=== PATIENT | male | born 1965 | race Caucasian/White ===

== ENCOUNTER → 2017-04-05 | Outpatient (CLI) | payer BC | END | disposition home or self-care (01) | LOC: RADMRIMAIN 06:18 | PROVIDERS: ATTEND Internal Medicine | DX: Z53.9 Procedure and treatment not carried out, unspecified reason (principal) ==

== ENCOUNTER → 2022-10-17 | Outpatient (CLI) | payer BC ==
--- NOTE | 2022-10-17 08:27 | US ---
EXAMINATION TYPE: US liver DATE OF EXAM: 10/17/2022 COMPARISON: NONE CLINICAL INDICATION: Male, 57 years old with history of R74.01; R00.1; Elevated liver enzymes TECHNIQUE: Multiple sonographic images of the right upper quadrant are obtained. FINDINGS: EXAM MEASUREMENTS: Liver Length: 16.1 cm Gallbladder Wall: 0.3 cm CBD: 0.5 cm Right Kidney: 11.4 x 6.2 x 4.7 cm Pancreas: Obscured by bowel gas Liver: attenuating, heterogenous Gallbladder: no evidence of stones Evidence for sonographic Zafar's sign: no CBD: limited evaluation Right Kidney: no evidence of hydronephrosis IMPRESSION: 1. No acute abnormality right upper quadrant ultrasound
--- NOTE | 2022-10-17 12:47 | CA ---
Transthoracic Echo Report Name: Jasiel Pedro Age: 57 Gender: M : 1965 Exam Date: 10/17/2022 08:01 Exam Location: [facility] Ht (in): 70 Wt (lb): 220 Ordering Physician: Anselmo Pete MD Attending/Referring Phys: [employer] Shaunna Cope [facility] Procedure CPT: Indications: R00.1 Cardiac Hx: Technical Quality: Technically difficult study Contrast 1: Total Dose (mL): Contrast 2: Total Dose (mL): MEASUREMENTS (Male / Female) Normal Values 2D ECHO LV Diastolic Diameter PLAX 4.6 cm 4.2 - 5.9 / 3.9 - 5.3 cm LV Systolic Diameter PLAX 3.0 cm IVS Diastolic Thickness 1.0 cm 0.6 - 1.0 / 0.6 - 0.9 cm LVPW Diastolic Thickness 1.0 cm 0.6 - 1.0 / 0.6 - 0.9 cm LV Relative Wall Thickness 0.4 M-MODE Aortic Root Diameter MM 3.4 cm LA Systolic Diameter MM 3.5 cm LA Ao Ratio MM 1.0 AV Cusp Separation MM 2.0 cm DOPPLER AV Peak Velocity 125.0 cm/s AV Peak Gradient 6.3 mmHg AV Mean Velocity 95.1 cm/s AV Mean Gradient 3.9 mmHg AV Velocity Time Integral 25.4 cm LVOT Peak Velocity 98.5 cm/s LVOT Peak Gradient 3.9 mmHg LVOT Velocity Time Integral 18.8 cm Mitral E Point Velocity 49.0 cm/s Mitral A Point Velocity 71.7 cm/s Mitral E to A Ratio 0.7 MV Deceleration Time 266.9 ms LV E' Lateral Velocity 10.0 cm/s Mitral E to LV E' Lateral Ratio 4.9 LV E' Septal Velocity 7.0 cm/s Mitral E to LV E' Septal Ratio 7.0 TR Peak Velocity 220.4 cm/s TR Peak Gradient 19.4 mmHg Right Atrial Pressure 3.0 mmHg Pulmonary Artery Systolic Pressu 22.4 mmHg Right Ventricular Systolic Press 24.4 mmHg FINDINGS Left Ventricle Normal left ventricular size, systolic function with no obvious regional wall motion abnormalities. Mildly increased left ventricular wall thickness. The ejection fraction is visually estimated at 55-60%. Right Ventricle Severe right ventricular dilatation. Right Atrium The right atrium is normal in size. Left Atrium The left atrium is normal in size. Mitral Valve Structurally normal mitral valve without significant stenosis or prolapse. There is no mitral regurgitation. Aortic Valve Structurally normal aortic valve without significant sclerosis or stenosis. There is no aortic regurgitation. Tricuspid Valve Structurally normal tricuspid valve without significant stenosis. Mild tricuspid regurgitation. Pulmonic Valve Structurally normal pulmonic valve without significant stenosis. Trace pulmonic regurgitation. Pericardium No pericardial effusion. Prominent epicardial fat. Aorta Normal aortic root dimension. CONCLUSIONS Mild LVH with preserved systolic function Prominent posterior pericardial stripe Previewed by: Dr. Rodríguez Murphy MD (Electronically Signed) Final Date: 17 October 2022 12:46
== END | disposition home or self-care (01) ==
LOC: RADUSWWP 07:13
PROVIDERS: ATTEND Internal Medicine
DX: R74.01 Elevation of levels of liver transaminase levels (principal); R00.1 Bradycardia, unspecified
CPT/HCPCS: 76705; 93306